=== PATIENT | male | born 1955 | race Caucasian/White ===

== ENCOUNTER → 2018-01-18 09:28 | Outpatient (CLI) | payer BC, SELFPAY ==
[2018-01-18 10:09] LABS: Absolute Lymphocyte Count 1.91 X10^3/ul (0.83-4.51); Absolute Neutrophil Count 2.5 X10^3/uL (2.0-7.7); Basophil# 0.05 X10^3/uL; Eosinophil# 0.15 X10^3/uL; Eosinophils% 2.9 % (0-5); Hematocrit 44.5 % (40-54); Hemoglobin 14.7 g/dl (13.0-16.5); Lymphocyte # 1.91 X10^3/ul (4.0); Lymphocyte % 36.9 % (19-41); Mean Corpuscular Hgb 30.2 pg (27.0-32.0); Mean Corpuscular Volume 91.4 fL (80-94); Mean Platelet Vol. 9.4 fl (6.2-12.0); Monocyte# 0.56 X10^3/uL; Monocyte% 10.8 % (0-10); Neutrophil # 2.49 X10^3/uL (2.7-7.7); Neutrophil % 48.2 % (47-70); POSITIVE COUNT NO; POSITIVE DIFFERENTIAL NO; POSITIVE MORPHOLOGY NO; Platelet Count 209 K/mm3 (150-450); RBC Distribution Width CV 13.4 % (11.6-14.6); RBC Distribution Width SD 44.4 fl (35.1-43.9); Red Blood Count 4.87 M/mm3 (4.6-6.2); White Blood Count 5.2 K/mm3 (4.4-11.0)
[2018-01-18 10:38] LABS: ALB/GLOB Ratio 1.1 RATIO (0.9-2.4); AST(SGOT) 12 U/L (15-37); Alanine Aminotransfer ALT/SGPT 27 U/L (16-61); Albumin, Serum 3.5 g/dL (3.2-5.0); Alkaline Phosphatase 94 U/L (45-117); Anion Gap 7 (5-15); BUN 18 mg/dL (7-18); BUN/Creat Ratio 18.9 RATIO (10-20); Calcium,Total 8.5 mg/dL (8.5-10.1); Chloride 107 mmol/L (98-107); Cholesterol 205 mg/dL (200); Creatinine, Serum 0.95 mg/dL (0.70-1.30); EST Glomerular Filtration Rate 85 mL/min (>60); Est Glom Filt Rate - Afr Amer 103 mL/min (>60); Globulin 3.3 g/dL (2.2-4.2); Glucose 95 mg/dL (74-106); High Density Lipoprotein 47 mg/dL; Potassium 3.9 mmol/L (3.5-5.1); Protein, Total 6.8 g/dL (6.4-8.2); Sodium Level 143 mmol/L (136-145); Triglycerides 105 mg/dL; Very Low Density Lipoprotein 21 mg/dL (5-40)
== END ==
PROVIDERS: Family Provider Family Medicine; PCP Family Medicine; Referring Provider Family Medicine; Visit Provider Family Medicine
DX: Z00.01 Encounter for general adult medical examination with abnormal findings (principal); R00.1 Bradycardia, unspecified; Z12.5 Encounter for screening for malignant neoplasm of prostate
CPT/HCPCS: 36415; 80053; 80061; 84153; 85025; G0103

== ENCOUNTER → 2018-06-25 17:36 | Outpatient (CLI) | payer BC, SELFPAY ==
--- NOTE | 2018-06-17 17:30 | RAD_ITS ---
STUDY: X-RAY - ORBITS REASON FOR EXAM: Male, 63 years old. This study is being performed as a clearance examination for exclusion of orbital metal, prior to the performance of an MRI examination. TECHNIQUE: 2 view(s) of the orbits were obtained. COMPARISON: None. FINDINGS: Normal bilateral orbits without a metallic orbital foreign body. Normal visualized facial bones. Normal paranasal sinuses. The soft tissue structures are unremarkable. RAD/Orbits for Foreign Body IMPRESSION: No demonstrated metallic orbital foreign body. The patient is cleared for an MRI examination. Electronically Signed: Carlos Blair MD at 7:49 EST , Service support ,
--- NOTE | 2018-06-25 18:15 | MRI_ITS ---
STUDY: MRI CERVICAL SPINE WITHOUT CONTRAST REASON FOR EXAM: Male, 63 years old. Left arm pain and tingling TECHNIQUE: Standardized fat and water weighted pulse sequences were obtained in the sagittal and axial planes. COMPARISON: None FINDINGS: Normal foramen magnum and brainstem-cervical cord junction. Normal craniovertebral junction. Normal anterior atlantoaxial articulation. Normal odontoid process. Normal cervical lordosis. Normal vertebral bodies and posterior osseous elements. C2-3: Normal endplates. Normal disc height, signal and morphology. Normal central canal and intervertebral neural foramina. C3-4: Normal endplates. Normal disc height, signal and tiny central disc protrusion. Normal central canal and intervertebral neural foramina. C4-5: Narrowed disc space and endplate spurring with minor bulging disc osteophyte complex. Normal central canal. Moderate right neuroforaminal stenosis and mild narrowing on the left secondary to bony hypertrophy. C6-7:: Normal endplates. Normal disc height, signal and minor bulging of the disc with left posterolateral/foraminal disc protrusion.. Mild narrowing of the central canal and impingement upon ventral surface of the thecal sac and cord. Severe left neuroforaminal stenosis secondary to disc and bony hypertrophy. Minor right neural foraminal encroachment secondary to bony hypertrophy C7-T1: Normal endplates. Normal disc height, signal and morphology. Normal central canal and intervertebral neural foramina. Normal cervical cord. Normal visualized soft tissue structures. MRI/Spine Cervical (Routine) IMPRESSION: No evidence for acute fracture or other significant bony pathology.. Mild spondylosis. Minor bulging disc osteophyte complex at C4-5 creating moderate right neuroforaminal stenosis and mild narrowing on the left due to bony hypertrophy. Spinal stenosis at C6-7 greater on the left secondary to disc disease and bony hypertrophy Findings as above Electronically Signed: Adriel Guerra MD at 20:13 EST , Service support ,
== END ==
PROVIDERS: Family Provider Family Medicine; PCP Family Medicine
DX: M54.13 Radiculopathy, cervicothoracic region (principal)
CPT/HCPCS: 70030; 72141

== ENCOUNTER → 2019-02-07 08:58 | Outpatient (CLI) | payer BC, SELFPAY ==
[2019-02-07 10:57] LABS: Absolute Lymphocyte Count 1.89 X10^3/uL (0.83-4.51); Absolute Neutrophil Count 2.3 X10^3/uL (2.0-7.7); Basophil# 0.07 X10^3/uL; Basophil% 1.4 % (0-1); Eosinophil# 0.11 X10^3/uL; Eosinophils% 2.2 % (0-5); Hematocrit 47.1 % (40-54); Hemoglobin 15.2 g/dL (13.0-16.5); Lymphocyte # 1.89 X10^3/ul (4.0); Mean Corp Hgb Conc 32.3 g/dL (32-36); Mean Corpuscular Hgb 29.7 pg (27.0-32.0); Mean Platelet Vol. 9.6 fl (6.2-12.0); Monocyte# 0.57 X10^3/uL; Monocyte% 11.4 % (0-10); NRBC Flagged by Analyzer 0 % (0-5); Neutrophil # 2.33 X10^3/uL (2.7-7.7); Neutrophil % 46.8 % (47-70); Platelet Count 223 K/mm3 (150-450); RBC Distribution Width SD 44.1 fl (35.1-43.9); Red Blood Count 5.12 M/mm3 (4.6-6.2)
[2019-02-07 11:26] LABS: AST(SGOT) 14 U/L (15-37); Alanine Aminotransfer ALT/SGPT 28 U/L (16-61); Albumin, Serum 3.5 g/dL (3.2-5.0); Alkaline Phosphatase 88 U/L (45-117); Anion Gap 3 (5-15); BUN 13 mg/dL (7-18); BUN/Creat Ratio 14.3 RATIO (10-20); Chloride 106 mmol/L (98-107); Cholesterol 183 mg/dL (200); Creatinine, Serum 0.91 mg/dL (0.70-1.30); EST Glomerular Filtration Rate 89 mL/min (>60); Est Glom Filt Rate - Afr Amer 108 mL/min (>60); Globulin 3.4 g/dL (2.2-4.2); Glucose 83 mg/dL (74-106); High Density Lipoprotein 53 mg/dL; PSA,Total - Annual Screen 1.21 ng/mL (0.00-4.00); Potassium 3.9 mmol/L (3.5-5.1); Protein, Total 6.9 g/dL (6.4-8.2); Sodium Level 141 mmol/L (136-145); Triglycerides 76 mg/dL; Very Low Density Lipoprotein 15 mg/dL (5-40)
== END ==
PROVIDERS: Family Provider Family Medicine; PCP Family Medicine; Referring Provider Family Medicine; Visit Provider Family Medicine
DX: Z00.00 Encounter for general adult medical examination without abnormal findings (principal); Z12.5 Encounter for screening for malignant neoplasm of prostate
CPT/HCPCS: 36415; 80053; 80061; 84153; 85025; G0103

== ENCOUNTER → 2020-02-11 08:51 | Outpatient (CLI) ==
[2020-02-11 10:25] LABS: Absolute Lymphocyte Count 2.71 X10^3/uL (0.83-4.51); Absolute Neutrophil Count 3.2 X10^3/uL (2.0-7.7); Basophil# 0.08 X10^3/uL; Basophil% 1.2 % (0-1); Eosinophil# 0.17 X10^3/uL; Eosinophils% 2.4 % (0-5); Hematocrit 47.5 % (40-54); Hemoglobin 15.2 g/dL (13.0-16.5); Lymphocyte # 2.71 X10^3/ul (4.0); Mean Corpuscular Hgb 29.6 pg (27.0-32.0); Mean Corpuscular Volume 92.4 fL (80-94); Monocyte# 0.73 X10^3/uL; Monocyte% 10.5 % (0-10); NRBC Flagged by Analyzer 0 % (0-5); Neutrophil # 3.23 X10^3/uL (2.7-7.7); Neutrophil % 46.6 % (47-70); Platelet Count 223 K/mm3 (150-450); RBC Distribution Width CV 12.9 % (11.6-14.6); Red Blood Count 5.14 M/mm3 (4.6-6.2); White Blood Count 6.9 K/mm3 (4.4-11.0)
[2020-02-11 11:01] LABS: AST(SGOT) 18 U/L (15-37); Alanine Aminotransfer ALT/SGPT 34 U/L (16-61); Albumin, Serum 3.5 g/dL (3.2-5.0); Alkaline Phosphatase 94 U/L (45-117); Anion Gap 2 (5-15); BUN 18 mg/dL (7-18); BUN/Creat Ratio 17.8 RATIO (10-20); Calcium,Total 8.7 mg/dL (8.5-10.1); Chloride 105 mmol/L (98-107); Cholesterol 201 mg/dL (200); Creatinine, Serum 1.01 mg/dL (0.70-1.30); EST Glomerular Filtration Rate 79 mL/min (>60); Est Glom Filt Rate - Afr Amer 96 mL/min (>60); Globulin 3.6 g/dL (2.2-4.2); Glucose 78 mg/dL (74-106); High Density Lipoprotein 47 mg/dL; PSA,Total - Annual Screen 1.63 ng/mL (0.00-4.00); Potassium 4.2 mmol/L (3.5-5.1); Protein, Total 7.1 g/dL (6.4-8.2); Sodium Level 140 mmol/L (136-145); Triglycerides 236 mg/dL; Very Low Density Lipoprotein 47 mg/dL (5-40)
== END ==
PROVIDERS: Family Medicine
DX: Z00.00 Encounter for general adult medical examination without abnormal findings (principal); Z12.5 Encounter for screening for malignant neoplasm of prostate
CPT/HCPCS: 36415; 80053; 80061; 84153; 85025; G0103

== ENCOUNTER → 2021-02-04 09:05 | Outpatient (CLI) | payer BC, SELFPAY ==
[2021-02-04 10:53] LABS: Absolute Lymphocyte Count 1.86 X10^3/uL (0.83-4.51); Absolute Neutrophil Count 2.6 X10^3/uL (2.0-7.7); Basophil# 0.07 X10^3/uL; Basophil% 1.3 % (0-1); Eosinophil# 0.16 X10^3/uL; Eosinophils% 3.1 % (0-5); Hematocrit 44.9 % (40-54); Hemoglobin 14.6 g/dL (13.0-16.5); Lymphocyte # 1.86 X10^3/ul (0.83-4.51); Lymphocyte % 35.8 % (19-41); Mean Corp Hgb Conc 32.5 g/dL (32-36); Mean Corpuscular Hgb 29.9 pg (27.0-32.0); Mean Platelet Vol. 9.4 fl (6.2-12.0); Monocyte# 0.52 X10^3/uL; NRBC Flagged by Analyzer 0 % (0-5); Neutrophil # 2.58 X10^3/uL (2.7-7.7); Neutrophil % 49.6 % (47-70); Platelet Count 220 K/mm3 (150-450); RBC Distribution Width CV 13.3 % (11.6-14.6); RBC Distribution Width SD 45.5 fl (35.1-43.9); Red Blood Count 4.88 M/mm3 (4.6-6.2); White Blood Count 5.2 K/mm3 (4.4-11.0)
[2021-02-04 11:44] LABS: AST(SGOT) 15 U/L (15-37); Alanine Aminotransfer ALT/SGPT 35 U/L (16-61); Albumin, Serum 3.4 g/dL (3.2-5.0); Alkaline Phosphatase 94 U/L (45-117); Anion Gap 4 (5-15); BUN 19 mg/dL (7-18); BUN/Creat Ratio 20.9 RATIO (10-20); Calcium,Total 8.9 mg/dL (8.5-10.1); Chloride 105 mmol/L (98-107); Cholesterol 201 mg/dL (200); Creatinine, Serum 0.91 mg/dL (0.70-1.30); EST Glomerular Filtration Rate 89 mL/min (>60); Est Glom Filt Rate - Afr Amer 108 mL/min (>60); Globulin 3.5 g/dL (2.2-4.2); Glucose 82 mg/dL (74-106); High Density Lipoprotein 51 mg/dL; PSA,Total - Annual Screen 1.54 ng/mL (0.00-4.00); Potassium 3.9 mmol/L (3.5-5.1); Protein, Total 6.9 g/dL (6.4-8.2); Sodium Level 141 mmol/L (136-145); Triglycerides 139 mg/dL; Very Low Density Lipoprotein 28 mg/dL (5-40)
[2021-02-06 10:52] LABS: Vitamin D,25 Hydroxy 29.2 ng/mL
== END ==
PROVIDERS: PCP Family Medicine; Visit Provider Family Medicine
DX: Z00.00 Encounter for general adult medical examination without abnormal findings (principal); Z12.5 Encounter for screening for malignant neoplasm of prostate; E55.9 Vitamin D deficiency, unspecified
CPT/HCPCS: 36415; 80053; 80061; 82306; 84153; 85025; G0103

== ENCOUNTER → 2021-04-17 12:34 | Outpatient (CLI) | payer BC, SELFPAY | PROVIDERS: PCP Family Medicine; Visit Provider Family Medicine | DX: U07.1 COVID-19 (principal) | CPT/HCPCS: 87633; 87635; U0005; U0003 ==

== ENCOUNTER → 2022-02-27 | Outpatient (CLI) | payer OTHER, SELFPAY ==
[2022-02-27 10:26] LABS: Absolute Lymphocyte Count 1.65 X10^3/uL (0.83-4.51); Absolute Neutrophil Count 1.8 X10^3/uL (2.0-7.7); Basophil# 0.06 X10^3/uL; Basophil% 1.5 % (0-1); Eosinophil# 0.12 X10^3/uL; Eosinophils% 2.9 % (0-5); Hematocrit 44.5 % (40-54); Hemoglobin 14.6 g/dL (13.0-16.5); Lymphocyte # 1.65 X10^3/ul (0.83-4.51); Lymphocyte % 40.5 % (19-41); Mean Corp Hgb Conc 32.8 g/dL (32-36); Mean Corpuscular Hgb 29.9 pg (27.0-32.0); Mean Platelet Vol. 9.5 fl (6.2-12.0); Monocyte# 0.47 X10^3/uL; Monocyte% 11.5 % (0-10); NRBC Flagged by Analyzer 0 % (0-5); Neutrophil # 1.76 X10^3/uL (2.7-7.7); Neutrophil % 43.4 % (47-70); Platelet Count 194 K/mm3 (150-450); RBC Distribution Width CV 13.3 % (11.6-14.6); RBC Distribution Width SD 44.9 fl (35.1-43.9); Red Blood Count 4.89 M/mm3 (4.6-6.2); White Blood Count 4.1 K/mm3 (4.4-11.0)
[2022-02-27 11:21] LABS: ALB/GLOB Ratio 1.1 RATIO (0.9-2.4); AST(SGOT) 10 U/L (15-37); Alanine Aminotransfer ALT/SGPT 23 U/L (16-61); Albumin, Serum 3.6 g/dL (3.2-5.0); Alkaline Phosphatase 91 U/L (45-117); Anion Gap 5 (5-15); BUN 18 mg/dL (7-18); BUN/Creat Ratio 18.8 RATIO (10-20); Calcium,Total 8.6 mg/dL (8.5-10.1); Chloride 104 mmol/L (98-107); Cholesterol 194 mg/dL (200); Creatinine, Serum 0.96 mg/dL (0.70-1.30); EST Glomerular Filtration Rate 84 mL/min (>60); Est Glom Filt Rate - Afr Amer 101 mL/min (>60); Globulin 3.2 g/dL (2.2-4.2); Glucose 93 mg/dL (74-106); High Density Lipoprotein 53 mg/dL; PSA,Total - Annual Screen 1.45 ng/mL (0.00-4.00); Potassium 3.5 mmol/L (3.5-5.1); Protein, Total 6.8 g/dL (6.4-8.2); Sodium Level 138 mmol/L (136-145); Triglycerides 103 mg/dL; Very Low Density Lipoprotein 21 mg/dL (5-40)
== END | disposition home or self-care (01) ==
LOC: LAB 09:50
PROVIDERS: PCP Family Medicine; Referring Provider Family Medicine; Visit Provider Family Medicine
DX: Z00.00 Encounter for general adult medical examination without abnormal findings (principal); Z12.5 Encounter for screening for malignant neoplasm of prostate
CPT/HCPCS: 36415; 80053; 80061; 84153; 85025; G0103

== ENCOUNTER → 2022-09-21 | Outpatient (CLI) | payer OTHER, SELFPAY ==
--- NOTE | 2022-09-21 10:47 | VDLE_ITS ---
Reason For Study: Rt leg Thrombophlebitis RIGHT LEFT CFV is compressible, spontaneous, phasic, CFV is compressible, spontaneous, phasic, competent and demonstrates normal competent, and demonstrates normal augmentation. augmentation. FV is compressible, spontaneous, phasic, competent and demonstrates normal augmentation. POP V is compressible, spontaneous, phasic, competent and demonstrates normal augmentation. T/P Trunk is compressible. PTV is compressible. RT PerV is compressible. Rt GSV is DILATED and NONCOMPRESSIBLE with intraluminal echoes. Thrombus appears to originate 7-8cm distal to SFJ. Rt ASV is DILATED and NONCOMPRESSIBLE with intraluminal echoes. Thrombus appears to extend from GSV into ASV at prox-mid thigh and extend into multple varicosities at mid calf. Rt SSV is DILATED and NONCOMPRESSIBLE with intraluminal echoes.Thrombus appears to originate 2-3cm distal to origin. Procedure This is a venous duplex using B-mode, color flow and spectral Doppler. Exam performed in department. The exam was diagnostic. A preliminary report was called and/or faxed to Dr. Shah office. VL/Venous Duplex US, Unilateral Interpretation Summary There is no evidence of right lower extremity deep vein thrombosis. Superficial thrombophlebitis right great saphenous vein 7 cm distal to the saphenofemoral junction Superficial thrombophlebitis right accessory saphenous vein into the proximal/m id thigh Superficial thrombophlebitis right small saphenous vein to within 2 cm of the o rigin Normal flow patterns left common femoral vein Ordering Physician: Abdullahi Shah Referring Physician: Abdullahi Shah Performed By: Richard Gurrola RVT
== END | disposition home or self-care (01) ==
LOC: CVS 10:45
PROVIDERS: PCP Family Medicine; Referring Provider Family Medicine; Visit Provider Family Medicine
DX: I80.01 Phlebitis and thrombophlebitis of superficial vessels of right lower extremity (principal)
CPT/HCPCS: 93971

== ENCOUNTER → 2023-01-22 | Outpatient (CLI) | payer OTHER, SELFPAY ==
[2023-01-22 10:44] LABS: Cholesterol 204 mg/dL (200); High Density Lipoprotein 47 mg/dL; PSA,Total - Annual Screen 1.96 ng/mL (0.00-4.00); Triglycerides 120 mg/dL; Very Low Density Lipoprotein 24 mg/dL (5-40)
== END | disposition home or self-care (01) ==
PROVIDERS: PCP Family Medicine; Referring Provider Family Medicine; Visit Provider Family Medicine
DX: Z00.00 Encounter for general adult medical examination without abnormal findings (principal); Z12.5 Encounter for screening for malignant neoplasm of prostate
CPT/HCPCS: 36415; 80061; 84153; G0103

== ENCOUNTER → 2023-04-11 | Outpatient (CLI) | payer SELFPAY ==
--- NOTE | 2023-04-11 16:49 | CT_ITS ---
EXAM: CT LEFT UPPER EXTREMITY WITHOUT INTRAVENOUS CONTRAST CLINICAL INDICATION: OSTEOARTHRITIS/PRE OP TECHNIQUE: Helically acquired images were obtained of the left upper extremity without intravenous contrast. 2-D reformats were performed by the technologist. CTDIvol = ( 22.17 ) mGy, DLP = ( 554.01 ) mGycm This CT exam was performed using one or more of the following dose reduction techniques: automated exposure control, adjustment of the mA and/or kV according to patient size, and/or use of iterative reconstruction technique. COMPARISON: No relevant prior studies available. FINDINGS: BONES/JOINTS: Small corticated irregular ossific fragment identified adjacent to the anterior aspect of the acromion. Moderate to severe hypertrophic degenerative changes of the acromioclavicular joint with moderate mass effect on the underlying soft tissues. High riding humeral head indicative of a chronic full thickness rotator cuff tear. Small humeral head bone island and inferior glenoid bone island. No acute or healing fracture or other malalignment. SOFT TISSUES: Unremarkable. No soft tissue swelling or gas. No radiopaque foreign body. No soft tissue hemorrhage or hematoma. LUNGS AND PLEURAL SPACES: Incompletely imaged 6 mm subpleural nodule at the posterior lateral aspect of the left lower lobe. CT/Extremity Upper without Contra IMPRESSION: Preoperative planning study showing moderate to severe degenerative changes acromioclavicular joint. Evidence of a chronic full thickness rotator cuff tear with high riding humeral head. Incompletely imaged 6 mm subpleural nodule at the posterior lateral aspect of the left lower lobe. Suggest a follow up chest CT to better evaluate and is assessed with the presence of any other nodules throughout the lungs bilaterally. Electronically Signed: Garret Benítez MD at 21:40 EST ,
== END | disposition home or self-care (01) ==
LOC: CT 16:43
PROVIDERS: PCP Family Medicine; Referring Provider Specialist; Visit Provider Specialist
DX: M19.012 Primary osteoarthritis, left shoulder (principal)
CPT/HCPCS: 73200

== ENCOUNTER → 2023-04-23 | Outpatient (CLI) | payer MEDICARE, OTHER, SELFPAY ==
--- OUTSIDE RECORDS SUMMARY | 2023-04-23 14:09 | XMS RPT_ITS | CCD ---
Author Name Unknown Address [address] [place] [address] Organization [facility] Care Team Providers Care Backer Up Name Role Phone KYLIEDAYSISANTIAGO RuedaYONG GREGORY Attending Unavail able PROVIDER, UNKNOWN Referring Unavailable Abdullahi Shah Primary Care Unavailable Encounters Encounter Date Encounter Type Care Provider Facility Start: 07-17-2018 Patient encounter procedure LORI CACERES [facility] Payers Date Payer Category Payer Unknown [id number] Unknown Summary Purpose Family History No Family History Records Found Advance Directives No Advanced Directives Records Found Additional Source Comments (unrecognized sect ion and content) No Status Records Found INFORMATION SOURCE (unrecogn ized section and content) FOR RECORDS PERTAINING TO PATIENTS WHO ARE OR HAVE BEEN ENROLLED IN A CHEMICAL DEPENDENCY/SUBSTANCEABUSE PROGRAM, SOME INFORMATION MAY BE OMITTED. This clinical summary was aggregated from multiple sources. Caution should be exercised in using it in the provision of clinical care. This summary normalizes information from multiple sources, and as a consequence, information in this document may materially change the coding, format and clinical context of patient data. In addition, data may be omitted in some cases. CLINICAL DECISIONS SHOULD BE BASED ON THE PRIMARY CLINICAL RECORDS. [facility] [employer] [facility]. provides no warranty or guarantee of the accuracy or completeness of information in this document.
--- NOTE | 2023-04-23 14:15 | CT_ITS ---
INDICATION: NODULE EXAMINATION: CT CHEST WITH CONTRAST - CT Chest W/ Contrast Injection TECHNIQUE: Helically acquired images were obtained of the chest following IV contrast. A radiation dose optimization technique was used for this scan. IV Contrast dosage and agent: 100 cc of Isovue-300. CTDI vol : 17.74. The DLP: 478.77 COMPARISON: None. FINDINGS: LUNGS, PLEURA AND LARGE AIRWAYS: There is a small nodule identified within the left lower lobe near the subpleural region measuring 5.6 mm. There is mild posterior dependent atelectasis throughout the bilateral lower lobes. Otherwise normal lung parenchyma with no masses, consolidation, or edema. No pleural effusion or thickening. No pneumothorax. THYROID: No thyroid lesions. HEART AND PERICARDIUM: Heart size is normal. No pericardial effusion. VESSELS: Mild atherosclerosis of aorta otherwise aorta is not dilated. No aortic dissection. No obvious central pulmonary embolism although this study was not performed with the pulmonary embolism protocol. MEDIASTINUM AND BILL: No mediastinal or hilar adenopathy. Esophagus is unremarkable. No hiatal hernia. UPPER ABDOMEN: Left upper no pole simple cyst measuring 3.8 cm. Remainder of the visualized upper abdomen unremarkable. BONES: No suspicious lytic or blastic abnormality. CT/Chest WITH Contrast IMPRESSION: Posterior dependent atelectasis. 5.6 nodule within the left lower lobe near the subpleural region which may be further assessed with CT chest in 6-12 months, depending on risk factors to document stability. Electronically Signed: Corrie Dove MD at 23:11 EST ,
[2023-04-23 14:31] LABS: CREATININE FINGERSTICK < 1.0 mg/dL (0.70-1.30); EGFR FINGERSTICK > 60.0000 mL/min (>60)
== END | disposition home or self-care (01) ==
LOC: CT 13:36
PROVIDERS: PCP Family Medicine; Referring Provider Family Medicine; Visit Provider Family Medicine
DX: R91.1 Solitary pulmonary nodule (principal)
CPT/HCPCS: 71260; Q9967

== ENCOUNTER 2023-05-08 05:21 | Day surgery (SDC) | payer MEDICARE, OTHER, SELFPAY ==
--- NOTE | 2023-04-23 13:33 | EKG12_ITS ---
Test Reason : PREOP Blood Pressure : / mmHG Vent. Rate : 042 BPM Atrial Rate : 042 BPM P-R Int : 136 ms QRS Dur : 072 ms QT Int : 442 ms P-R-T Axes : 099 072 072 degrees QTc Int : 369 ms Marked sinus bradycardia Nonspecific ST abnormality Abnormal ECG Confirmed by DOLORES MENDEZ, HALLIE ([id number]), newspaper editor SIMA ZULETA ([id number]) on 04/24/2023 6:20:18 AM Referred By: Elijah Fuller Confirmed By:HALLIE BERNAL MD
[2023-04-23 15:19] LABS: Absolute Lymphocyte Count 1.24 X10^3/uL (0.83-4.51); Absolute Neutrophil Count 3.5 X10^3/uL (2.0-7.7); Basophil# 0.11 X10^3/uL; Basophil% 1.9 % (0-1); Eosinophil# 0.17 X10^3/uL; Hematocrit 45.6 % (40-54); Hemoglobin 14.5 g/dL (13.0-16.5); Lymphocyte # 1.24 X10^3/ul (0.83-4.51); Lymphocyte % 21.5 % (19-41); Mean Corp Hgb Conc 31.8 g/dL (32-36); Mean Corpuscular Hgb 29.2 pg (27.0-32.0); Mean Corpuscular Volume 91.8 fL (80-94); Monocyte# 0.69 X10^3/uL; NRBC Flagged by Analyzer 0 % (0-5); Neutrophil # 3.53 X10^3/uL (2.7-7.7); Neutrophil % 61.3 % (47-70); Platelet Count 236 K/mm3 (150-450); RBC Distribution Width CV 13.2 % (11.6-14.6); RBC Distribution Width SD 44.7 fl (35.1-43.9); Red Blood Count 4.97 M/mm3 (4.6-6.2); White Blood Count 5.8 K/mm3 (4.4-11.0)
[2023-04-23 15:41] LABS: Magnesium 2.3 mg/dL (1.6-2.6)
[2023-04-23 15:45] LABS: Albumin, Serum 3.5 g/dL (3.2-5.0); Anion Gap 3 (5-15); BUN 22 mg/dL (7-18); BUN/Creat Ratio 21.2 RATIO (10-20); Calcium,Total 8.8 mg/dL (8.5-10.1); Chloride 104 mmol/L (98-107); Creatinine, Serum 1.04 mg/dL (0.70-1.30); EST Glomerular Filtration Rate 76 mL/min (>60); Est Glom Filt Rate - Afr Amer 92 mL/min (>60); Glucose 102 mg/dL (74-106); Potassium 4.4 mmol/L (3.5-5.1); Sodium Level 139 mmol/L (136-145)
--- NOTE | 2023-05-02 14:07 | PCM.HP.BLA ---
History and Physical History and Physical? Patient Name: Kit Joyce : 1955 From:? KASEY DUNCAN PA-C? DATE OF PRE-OPERATIVE EXAM: 05/01/2023 DATE OF SURGERY:? 05/08/2023 SCHEDULED PROCEDURE:? Left reverse total shoulder arthroplasty HISTORY OF PRESENT ILLNESS: Preoperative history and physical exam was performed on May 01, 2023.? This is a 67-year-old male who is had ongoing pain with his left shoulder for over 3 years.? Patient has had 2 previous MRIs of the left shoulder which did reveal large rotator cuff tears.? Patient was initially seen by Dr. Abdifatah Morrow in which the rotator cuff tear was deemed irreparable.? His pain can still reach 7/10 with activities and on average 4/10.? He has difficulty with getting dressed putting on clothing due to the pain.? Pain is located over the anterior lateral left shoulder.? He also has difficulty with any activities that require reaching out, overhead or any pushing/pulling activities.? Patient has had previous corticosteroid injections with no relief.? Patient has also been through previous physical therapy without relief.? Patient has also obtain surgical clearance and the primary care provider Dr. Abdullahi Shah.? Patient has no medical complications however does state he has had a previous superficial venous thrombosis in the past.? Denies any past DVT or pulmonary embolism.? After failing conservative measures and discussing all treatment options with Dr. Elijah Fuller, the patient does wish to proceed with a left reverse total shoulder arthroplasty.? He denies any recent chest pain, shortness of breath, fevers chills or recent infections.? Patient has been using two protein drinks due to nutritional testing. REVIEW OF SYSTEMS: Review Of Systems: Constitutional: Denies change in appetite, fever and weight change. Cardiovasular: Denies chest pain, heart murmur and irregular heartbeat. Respiratory: Denies cough, pneumonia, shortness of breath, tuberculosis and wheezing. Gastrointestinal: Denies constipation, diarrhea, heartburn, nausea, rectal itching, bloody stools and vomiting. Genitourinary: Denies incontinence. Musculoskeletal: Reports pain and weakness, but denies leg swelling and trouble walking. Skin: Denies Raynaud's, history of shingles and tattoo. Neurological: Denies ambulatory dysfunction, dizziness, numbness/tingling and tremor. Psychiatric: Denies anxiety, insomnia and stress. Hematologic/Lymphatic: Denies anemia, bleeding/bruising tendency and past transfusion. Reviewed, no changes. PAST MEDICAL HISTORY: Advance Care Plan: No Advance Directives Effective Date: 10/06/2019 Past Medical History: Medical Problems: Hard of Hearing SVT - (08/2022) Right lower extremity? Accidents: None Surgical Hx: Appendectomy - (1983) [facility] Anesthesia Complications: None Assistive Devices: Glasses, Contacts Reviewed and updated. SOCIAL HISTORY: Social History: Marital: .Occupation: [employer]Work Status: Currently Working.Hand Dominance: Left-handed. Personal Habits:? Cigarette Use: Never Smoked Cigarettes.Smokeless Tobacco: Never Used Smokeless Tobacco.E-Cigarette Use: Never used.Alcohol: Denies use.Drug Use: Denies Use.Enjoy Exercising: Never Exercises. Reviewed, no changes. VITALS: Ht: 71.5 Wt: 189lb Wt k.730 BMI: 26.0 BP: 122/80 Pulse: 54 T: 97.3 T: 36.3C Pain Level: 4 O2SatR: 98 ALLERGIES: No Known Drug Allergy? MEDICATIONS: Oxycodone HCL 5 mg 1-2 tab by mouth every 4 hours as needed for pain, Meloxicam 7.5 mg 1 by mouth twice a day postoperatively, Doxycycline Hyclate 100 mg 1 by mouth twice a day x 2 weeks postoperatively, Zofran 4 mg one by mouth every 8 as needed nausea, Famotidine 20 mg 1 by mouth every day x 2 weeks postoperatively, Mupirocin 2 % use qtip and apply inside each nostril twice a day until the day of surgery, Calcium 600-10 MG-mcg 2po dialy, Vitamin D3? 2000 iu 50mcg 1 tablet per day, Claritin 10 mg as needed PRE-OP EXAM:? General appearance:NORMAL? ? ? Other: Eyes: Conjunctivae and lids: NORMAL? Pupils: ERR Ears, Nose, Mouth, and Throat: NORMAL? Other: Inspection of lips, teeth and gums: NORMAL? ?Other: Neck: Examination of neck: no masses noted. Respiratory: Assessment of respiratory effort: NORMAL? ?Other: ?Auscultation of lungs: clear to auscultation no wheezes, rhonchi or rales. Cardiovascular:? Auscultation of heart: regular rate and rhythm, no murmurs, gallops or rubs. PHYSICAL EXAMINATION: On exam the left shoulder there is no erythema or signs of infection.? He has active forward elevation to 90, external rotation proximally 40, internal rotation L2.? Passive range of motion forward flexion 145.? Supraspinatus strength 4/5 on the left and 5/5 on the right.? Sensation intact to light touch to axillary, radial, median, ulnar nerve distribution. IMAGING STUDIES: Previous x-rays and MRIs reveal severe retracted rotator cuff tendon tear with rotator cuff arthropathy. IMPRESSION: 1.? Severe left shoulder rotator cuff arthropathy 2.? History of superficial venous thrombosis 3.? Overweight with BMI 26.0 PLAN: Dr. Elijah Fuller did discuss and review with the patient all treatment options including surgical versus nonsurgical options.? Patient does wish to proceed with the above-stated procedure.? Potential risks, benefits, and complications of the procedure were discussed in detail including but not limited to , infection, nerve and blood vessel damage, persistent pain, numbness, tingling, paresthesias, blood clot, pulmonary embolism, and requirement for possible further surgery.? The patient expressed full understanding and has no further questions for the doctor.? Patient does agree to proceed with the above-stated procedure and has signed the surgery consent form. POST-OP MEDICATION PLAN: Pain Medications: Patient was given the following medications at the preoperative visit: Famotidine, meloxicam, oxycodone, and Zofran.? 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 We discussed side effects with hypersensitivity to sunlight in which she should take appropriate precautions.? Also recommended probiotic while on the antibiotic for 2 weeks.? He was also instructed to quill picking machine operator [id number] enteric-coated aspirin, extra strength Tylenol, and senna. DVT Prophylaxis:? Aspirin 81 mg twice daily for 4 weeks postoperatively.? Denies past history of DVT or pulmonary embolism This dictation was created using voice recognition software. Phonetic and/or grammatical errors may exist. ___? I have re-examined the patient.? There are no clinical changes since date of exam. ___? See progress notes for changes. ___? Dictated on admission Date: ? ? ?Time: Signature:
--- NOTE | 2023-05-07 07:30 | HIP_PTH ---
PATHOLOGY RESULTS PATIENT: JAY DA SILVA I LOC: [facility] [place] U#:[id number] AGE/SX: 67/M ROOM: RE05/08/[address]: Dr. Elijah Fuller MD : 1955 BED: DIS: 05/08/2023 SPEC #: [id number] RECD: 05/08/23 11:37 STATUS: TYREE RELora #: [id number] SOBIA: 05/07/23 07:[address]: Elijah Fuller DEPT: SURGICAL PATHOLOGY RECD BY: Kayla Urban ENTERED: 05/08/23 11:38 SP TYPE: TOTAL HIP OTHR DR: Dr. Abdullahi Shah, DO Tissues: Hip, NOS Procedures: Decalcification bone/plaque Surgery Specimen Level IV HEADER OPERATION: ERAS, total shoulder replacement PRE-OP DIAGNOSIS: Severe left shoulder rotator cuff arthroplasty TISSUE SUBMITTED: Bone and soft tissue left shoulder MICROSCOPIC DIAGNOSIS Bone and tissue of left shoulder, total shoulder resection: Degenerative joint disease. AM:candi 05/10/2023 MICROSCOPIC DESCRIPTION Slides are reviewed. GROSS DESCRIPTION Received is one container labeled with the patient's name and designated bone and soft tissue left shoulder. The specimen consists of a humeral head measuring 5.5 x 5.5 x 2.0 cm. The articular surface shows focal area of erosion and osteophyte formation. Also present in the container is a flat round piece of bone measuring 5.0 x 4.5 x 0.2 cm. Also present in the container are two pieces of soft tissue consisting predominantly of fibrocartilaginous tissue measuring in aggregate 5.0 x 3.5 x 0.6 cm. Dock Clerk sections are submitted in three cassettes as follows: 1 - soft tissue, 2 & 3 - humeral head after decalcification. / SJ:candi 05/08/2023 :5 CPT: 30067, 50908
[2023-05-08] VITALS (14 sets, daily range): BP systolic 122–184; BP diastolic 58–111; PULSE 41–70; RESP 12–18; TEMP 36.2–36.6; O2SAT 96–100; BMI 25.0
--- OUTSIDE RECORDS SUMMARY | 2023-05-08 05:23 | XMS RPT_ITS | CCD ---
Author Name Unknown Address [address] [place] [address] Organization [facility] Care Team Providers Care Tool Dispatcher Name Role Phone KYLIEDAYSISANTIAGO RuedaYONG GREGORY Attending Unavail able PROVIDER, UNKNOWN Referring Unavailable Abdullahi Shah Primary Care Unavailable Encounters Encounter Date Encounter Type Care Provider Facility Start: 07-17-2018 Patient encounter procedure LORI CACERES [facility] Payers Date Payer Category Payer Unknown [id number] Unknown Summary Purpose Family History No Family [...] BE BASED ON THE PRIMARY CLINICAL RECORDS. [facility]. provides no warranty or guarantee of the accuracy or completeness of information in this document.
[2023-05-08] MEDS: Lactated Ringers 1,000 ML 999 ML IV ×2 (06:00→10:13)
[2023-05-08] MEDS: Magnesium 1 GM over 15 mins IV (06:20)
[2023-05-08] MEDS: Vancomycin HCl 1,250 MG in 0.9% Normal Saline (250mL Bag) 250 ML 167 MG IV (06:22)
[2023-05-08] MEDS: Acetaminophen 500 MG Tablet 1000 MG PO ×2 (06:23→14:12)
[2023-05-08] MEDS: Celecoxib 200 MG Capsule 400 MG PO (06:23)
[2023-05-08] MEDS: Gabapentin 600 MG Tablet PO (06:24)
[2023-05-08 06:51] LABS: Bedside Glucose 87 mg/dL (74-106)
--- NOTE | 2023-05-08 07:27 | PCM.OPRPT ---
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 Tournier 25 mm 15 degree augment glenoid baseplate 2. Tournier 39 mm, 0mm Glenosphere 3. Tournier 39mm, 0mm humeral liner 4. Tournier Perform humeral stem primary press-fit 3+ size Brief history/Operative indications: 67 yo M with history of left shoulder pain and cuff tear arthropathy. Patient failed conservative measures as mentioned in the H&P. After discussion of risk and benefits of reverse total shoulder replacement including but not limited to blood loss, DVTs, PEs, nerve vessel damage, infection, general risk of anesthesia including loss of life, instability and stiffness patient demonstrating understanding wish to proceed was able to sign informed consent. Medical clearance was obtained. Procedure: On the date of the procedure, patient's left upper extremity was marked in the preoperative area. Patient was taken back to the operating room where they were placed on the table in the supine position. Anesthesia assumed control of the C-spine and airway, then administered anesthetic. All bony prominences were identified well-padded, the head was secured and the patient was placed in the beachchair position at about 35? inclination. Anesthesia remained in control of the C-spine airway throughout the remainder of the procedure. Patient was then appropriately fastened to the table and the left upper extremity was prepped in a sterile fashion. The surgeons then scrubbed. Upon reentering the room, the left upper extremity was draped in a sterile fashion and the incision was marked out. Timeout was called, everyone agreed upon the side, the site, the procedure to be performed, patient identity and antibiotics given. Incision was taken down through skin and subcutaneous tissue, fat down to fascia. The stripe of the deltopectoral interval and cephalic vein were identified and blunt dissection was used to retract the deltoid. The cephalic vein was retracted laterally. Clavipectoral fascia was then incised and a cobra retractor was placed in the wound. The proximal one third of the pectoralis major insertion was released. Pectoralis tendon insertion was used to tenodesed the biceps tendon which was identified in the bicipital groove. Tenodesis was done with #1 Vicryl. Proximally we followed the biceps tendon after transecting it into the rotator interval. The rotator interval was split and the arm was externally rotated. The split was 1 cm medial to the bicipital groove. Subscapularis tendon was released. We released down the anterior portion of the humeral head and a richardson elevator was used to release the inferior portion of the humeral head. The arm was externally rotated and the shoulder was dislocated. The humeral head was then cut at its natural retroversion. Once his humeral head cut was made humerus was retracted out of the way and the glenoid was exposed. After exposing the glenoid, the labrum and the remaining proximal biceps were debrided. At this time we are able to view the entire outer edge of the glenoid. A central pin was placed we sequentially reamed over this central pin to 25mm. Once this was completed the central screw was measured and found to be. The glenoid baseplate was screwed into place. Wound was closely irrigated out with normal saline we then drilled sequentially for 2 screws. Screws were placed superiorly and inferiorly and tightened down the screws. Once the screws were appropriately tightened into place the glenoid baseplate was compressed against the exposed subchondral bone. A 39mm glenosphere was impacted into place engaging the Zeng taper. Attention was then turned towards the humerus. The humerus was again externally rotated exposing the proximal portion of the humerus. Central canal finder was then used to open up the canal. We reamed to a 3 reamer. We then broached to a 3+ stem. We trialed the 0mm liner. We obtained an adequate reduction at this time with a nice stable shoulder. Good internal rotation to the gluteus, forward elevation to 140?, external rotation to 20?. Final components were then assembled on the back table, trials were removed and the wound was copiously irrigated with normal saline after dislocating the shoulder. Once the final components were assembled they were impacted into place. Shoulder was then reduced and found to be stable with good range of motion. Subscapularis tendon was repaired with #2 fiberwire. The wound was with chlorhexidine solution then copiously irrigated out with a 1 L normal saline lavage. The deltopectoral fascia was then closed using #1 Vicryl skin was closed using 2-0 Vicryl interrupted sutures and final skin closure was done with 3-0 Monocryl. Steri-Strips are placed for final skin closure. Sterile dressing was placed patient was then placed in a sling and awakened by anesthesia. Patient was then transferred to the PACU for recovery. Postoperative plan: Patient will be admitted to the hospital overnight. They will get physical therapy starting in 2 weeks with normal postoperative regimen. Patient will be placed on aspirin for DVT prophylaxis. The first postoperative appointment will be in 2 weeks for wound check and initiation of phase 1 physical therapy. doxycycline d/t +MRSA screening During the course of the procedure the physician budget assistant played a vital role. His intimate knowledge of my steps in the procedure aided in safe and expedient completion of the procedure. The PA played a vital rolls in positioning particularly in obtaining the appropriate beach chair position and securing the patient's body and head to the table. The PA was also vital in the retraction of soft tissues during the exposure and especially the glenoid work as this is a vital part of the procedure to prevent neurovascular damage. the PA was also vital and protecting soft tissues during times of bony cuts and reaming. He also played a vital role in closure with my direct supervision. The PA was also important during reduction and dislocation of the joint and trials intraoperatively. Complications none Admit VTE Documentation VTE Present on Admission: No VTE Mechan Device Prophylaxis: SCD's VTE Pharm Prophylaxis ordered?: Yes
[2023-05-08] MEDS: TXA 1000mg in NS100 100ml (IVPB at Incision) 660 MG IV (07:32)
[2023-05-08] MEDS: Cefazolin 2 GM in 0.9% Normal Saline (100mL Bag) 100 ML IV (07:42)
[2023-05-08] MEDS: Lactated Ringers 1,000 ML 75 ML IV (08:00)
[2023-05-08] MEDS: TXA 1000mg in NS100 100ml (IVPB at Closure) 660 MG IV (08:42)
[2023-05-08] MEDS: dexAMETHasone 10 MG/ML Vial IV (08:44)
--- NOTE | 2023-05-08 09:55 | RAD_ITS ---
INDICATION: TSA EXAMINATION/TECHNIQUE: X-RAY - LEFT XR Shoulder Min 2 Views 2 VIEWS COMPARISON: No relevant prior comparison study available FINDINGS: SOFT TISSUES: No soft tissue swelling or gas. No radiopaque foreign body. BONES/JOINTS: Status post reverse total shoulder arthroplasty. Components in expected positions. Expected soft tissue gas present. No acute fracture or subluxation.. Normal alignment. . No sclerotic or destructive changes observed. RAD/Shoulder min 2 Views IMPRESSION: Normal immediate postoperative appearance of the left total shoulder arthroplasty. Electronically Signed: Justin Aguilar MD at 10:50 EST ,
--- NOTE | 2023-05-08 12:13 | SUR.PHASEII ---
PATIENT IS VERY SLEEPY CURRENTLY AND HARDLY ABLE TO KEEP HIS EYES OPEN. HAS URINARY URGENCY BUT ONLY PUTTING OUT SMALL AMOUNTS. HE HAD ROBINUL IN PACU D/T BRADYCARDIA OF THE 30'S. APICAL PULSE 52.
[2023-05-08] MEDS: Cefazolin 1 GM/50 ML BAG IV (12:54)
== END 2023-05-08 15:15 | disposition home or self-care (01) ==
LOC: SDC 05:22 → AC 05:22
PROVIDERS: Anesthesiology; PCP Family Medicine; Referring Provider Specialist; Visit Provider Specialist
PROC: (CPT 23472; principal; 2023-05-08 07:00)
DX: M19.012 Primary osteoarthritis, left shoulder (principal); M75.100 Unspecified rotator cuff tear or rupture of unspecified shoulder, not specified as traumatic; E66.3 Overweight; H91.90 Unspecified hearing loss, unspecified ear; Z90.49 Acquired absence of other specified parts of digestive tract; Z86.718 Personal history of other venous thrombosis and embolism; Z68.26 Body mass index [BMI] 26.0-26.9, adult; R94.31 Abnormal electrocardiogram [ECG] [EKG]; R00.1 Bradycardia, unspecified
CPT/HCPCS: 23473; 01638; 64450; 36415; 73030; 80048; 82040; 82962; 83735; 85025; 87077; 87081; 88305; 88311; 93005; C1713; C1776; J7050; J7120; J2405; J3475

== ENCOUNTER → 2023-07-10 | Outpatient (CLI) | payer MEDICARE, OTHER, SELFPAY ==
--- NOTE | 2023-07-10 15:28 | VDLE_ITS ---
Reason For Study: LLE Swelling RIGHT LEFT CFV is compressible, spontaneous, phasic, GSV is normal. competent and demonstrates normal CFV is compressible, spontaneous, phasic, augmentation. competent, and demonstrates normal Procedure augmentation. This is a venous duplex using B-mode, color FV is compressible, spontaneous, phasic, flow and spectral Doppler. competent and demonstrates normal Exam performed in department. augmentation. The exam was diagnostic. Acute deep vein thrombosis is noted in the A preliminary report was called and/or faxed POP V. It is dilated and NONCOMPRESSIBLE. to Alison Mi / [email or web address] [email or web address] Acute deep vein thrombosis is noted in the office. Gastrocnemius V. It is dilated and NONCOMPRESSIBLE. T/P Trunk is compressible. PTV is compressible. LT PerV is compressible. VL/Venous Duplex US, Unilateral Interpretation Summary Acute deep venous thrombosis with visible thrombus left popliteal vein and terra rocnemius veins. Patent and compressible left great saphenous vein Normal flow patterns right common femoral vein Ordering Physician: Elijah Fuller Referring Physician: Abdullahi Shah Performed By: Richard Gurrola RVT
== END | disposition home or self-care (01) ==
PROVIDERS: PCP Family Medicine; Referring Provider Specialist; Visit Provider Specialist
DX: R22.42 Localized swelling, mass and lump, left lower limb (principal)
CPT/HCPCS: 93971

== ENCOUNTER → 2023-09-23 | Outpatient (CLI) | payer MEDICARE, OTHER, SELFPAY ==
--- NOTE | 2023-09-23 14:53 | VDLE_ITS ---
Reason For Study: DVT Lt leg RIGHT LEFT CFV is compressible, spontaneous, phasic, GSV is normal. competent and demonstrates normal CFV is compressible, spontaneous, phasic, augmentation. competent, and demonstrates normal Procedure augmentation. This is a venous duplex using B-mode, color FV is compressible, spontaneous, phasic, flow and spectral Doppler. competent and demonstrates normal Exam performed in department. augmentation. Compared to 07/10/2023. POP V is compressible, spontaneous, phasic, A preliminary report was called and/or faxed competent and demonstrates normal to Dr. Shah. augmentation. T/P Trunk is compressible. PTV is compressible. LT PerV is compressible. Gastroc V is noncompressible with no venous flow noted. VL/Venous Duplex US, Unilateral Interpretation Summary Deep venous thrombosis left gastrocnemius vein. Patent and compressible left great saphenous vein Normal flow patterns right common femoral vein Ordering Physician: Abdullahi Shah Referring Physician: Abdullahi Shah Performed By: Hedy Rizzo RVT
== END | disposition home or self-care (01) ==
LOC: CVS 14:51
PROVIDERS: PCP Family Medicine; Referring Provider Family Medicine; Visit Provider Family Medicine
DX: I82.462 Acute embolism and thrombosis of left calf muscular vein (principal); I82.432 Acute embolism and thrombosis of left popliteal vein
CPT/HCPCS: 93971

== ENCOUNTER → 2023-11-07 | Outpatient (CLI) | payer MEDICARE, OTHER, SELFPAY ==
--- NOTE | 2023-11-07 16:33 | CT_ITS ---
INDICATION: FU PULM NODULE EXAMINATION: CT CHEST WITHOUT CONTRAST - CT Chest W/O Contrast Injection TECHNIQUE: Helically acquired images were obtained of the chest. A radiation dose optimization technique was used for this scan. IV Contrast dosage and agent: None. COMPARISON: 05/08/2023 FINDINGS: LUNGS, PLEURA AND LARGE AIRWAYS: There is a decrease in the size of noncalcified nodule in the periphery of the left lower lobe of the lungs from 6 mm in diameter to 4 mm in diameter likely consistent with a shrinking scar. Follow-up CT is recommended in 6 months to document further stability or improvement. Linear opacity in the anterior left lower lobe consistent with discoid atelectasis. No new noncalcified nodule or mass. No pleural effusion or thickening. No pneumothorax. THYROID: No thyroid lesions. HEART AND PERICARDIUM: Heart size is normal. No pericardial effusion. CORONARY ARTERIES: Coronary artery calcification is seen. VESSELS: Thoracic aorta is not dilated. MEDIASTINUM AND BILL: No mediastinal or hilar adenopathy. Esophagus is unremarkable. No hiatal hernia. UPPER ABDOMEN: Bilateral renal cysts including a 6 cm exophytic cyst in the upper pole left kidney. BONES: Mild dextroscoliosis of thoracic spine. Status post left shoulder reverse arthroplasty. CT/Chest without Contrast IMPRESSION: Shrinking left lower lobe noncalcified nodule likely consistent with a scar. Follow-up CT is recommended in 6 months to document stability or improvement. Electronically Signed: Yovani Patrick MD at 9:11 EDT ,
== END | disposition home or self-care (01) ==
LOC: CT 16:31
PROVIDERS: PCP Family Medicine; Referring Provider Family Medicine; Visit Provider Family Medicine
DX: R91.1 Solitary pulmonary nodule (principal)
CPT/HCPCS: 71250

== ENCOUNTER → 2023-11-27 | Outpatient (CLI) | payer SELFPAY, MEDICARE, OTHER ==
--- NOTE | 2023-11-27 14:34 | CT_ITS ---
STUDY: CT CHEST WITHOUT CONTRAST REASON FOR EXAM: Male, 68 years old. CAD, assess severity, lung nodule -- *limited over read only* RADIATION DOSAGE (If Supplied By Facility): CTDIvol = ( 12.19 ) mGy, DLP = ( 219.42 ) mGycm TECHNIQUE: Transaxial imaging was performed without the administration of intravenous contrast material. Individualized dose optimization techniques were used for this CT. COMPARISON: Comparison is made with prior study dated November 07, 2023. FINDINGS: CHEST Stable 4 mm noncalcified nodule in the periphery of the left lower lobe. There is no demonstrated pleural abnormality. There are calcifications of the coronary arteries. Normal mediastinum. Normal hilar regions. Normal unenhanced pulmonary arteries. There is a mild degree of atherosclerotic calcification of the aortic arch. Normal osseous structures. There is no demonstrated abnormality of the visualized upper abdomen. CT/Limited Chest CT Cardiac Only IMPRESSION: Stable examination. Coronary artery calcification. Electronically Signed: Jonathon Escobar MD at 9:47 EDT ,
--- NOTE | 2023-11-27 16:36 | CA.SCORE ---
Calcium Scoring Date of Study:: 11/27/23 Indications Indications: CAD Coronary Calcium Scoring: High-resolution Computed Tomographic imaging of the chest was performed on [11/27/23 ], with particular attention paid to the coronary arteries. Images from the examination were analyzed for the presence and extent of coronary artery calcification , using coronary calcium quantification software. The patient tolerated the procedure well and there were no complications. The results of the coronary calcification analysis are provided below. Findings Coronary Artery Left Main (LM): 7 Left Anterior Descending (LAD): 137 Left Circumflex (LCX): 23 Right Coronary Artery (RCA): 0.79 Total Agatston Score: 167.79 Percentile Rankintht 50th% Calcium Scoring Interpretation: Different methods to categorize the overall amount of coronary plaque. Overall amount CAC SIS Visual of coronary plaque P1 Mild -100 <2 1-2 vessels with mild amount of plaque P2 Moderate 101-300 3-4 1-2 vessels with moderate amount, 3 vessels with mild amount of plaque P3 Severe 301-999 5-7 3 vessels with moderate amount, 1 vessel with severe amount of plaque P4 Extensive >1000 >8 2-3 vessels with severe amount of plaque Calcium Score: Moderate: 1-2 vessels w/moderate amt, 3 vessels w/mild amt of plaque Conclusion: Moderate 1-2 vessel disease.
== END | disposition home or self-care (01) ==
PROVIDERS: PCP Family Medicine; Referring Provider Family Medicine; Visit Provider Family Medicine
DX: I25.10 Atherosclerotic heart disease of native coronary artery without angina pectoris (principal)
CPT/HCPCS: 75571; 76380

== ENCOUNTER → 2023-12-04 | Outpatient (CLI) | payer MEDICARE, OTHER, SELFPAY ==
--- NOTE | 2023-12-04 13:39 | VDLE_ITS ---
Reason For Study: RECENT DVT RIGHT LEFT CFV is compressible, spontaneous, phasic, GSV is normal. competent and demonstrates normal CFV is compressible, spontaneous, phasic, augmentation. competent, and demonstrates normal Procedure augmentation. This is a venous duplex using B-mode, color FV is compressible, spontaneous, phasic, flow and spectral Doppler. competent and demonstrates normal Exam performed in department. augmentation. A preliminary report was called and/or faxed POP V is compressible, spontaneous, phasic, to @ [phone] @ 7400. competent and demonstrates normal augmentation. T/P Trunk is compressible. PTV is compressible. LT PerV is compressible. GASTROCNEMIUS VEIN is OCCLUDED & NONCOMPRESSIBLE. VL/Venous Duplex US, Unilateral Interpretation Summary Deep vein thrombosis noted in the left gastrocnemius vein, no significant chan e from prior study. Ordering Physician: Abdullahi Shah Referring Physician: Abdullahi Shah Performed By: Millie Velazquez RDCS, RVT
== END | disposition home or self-care (01) ==
LOC: CVS 13:38
PROVIDERS: PCP Family Medicine; Referring Provider Family Medicine; Visit Provider Family Medicine
DX: I82.432 Acute embolism and thrombosis of left popliteal vein (principal); I82.462 Acute embolism and thrombosis of left calf muscular vein
CPT/HCPCS: 93971

== ENCOUNTER → 2023-12-31 | Outpatient (CLI) | payer MEDICARE, OTHER, SELFPAY ==
[2023-12-31 17:31] LABS: Absolute Lymphocyte Count 1.53 X10^3/uL (0.83-4.51); Absolute Neutrophil Count 3.1 X10^3/uL (2.0-7.7); Basophil# 0.06 X10^3/uL; Basophil% 1.1 % (0-1); Eosinophil# 0.07 X10^3/uL; Eosinophils% 1.3 % (0-5); Hematocrit 44.5 % (40-54); Lymphocyte # 1.53 X10^3/ul (0.83-4.51); Lymphocyte % 28.9 % (19-41); Mean Corp Hgb Conc 31.5 g/dL (32-36); Mean Corpuscular Hgb 29.4 pg (27.0-32.0); Mean Corpuscular Volume 93.5 fL (80-94); Mean Platelet Vol. 10.1 fl (6.2-12.0); Monocyte# 0.48 X10^3/uL; Monocyte% 9.1 % (0-10); NRBC Flagged by Analyzer 0 % (0-5); Neutrophil # 3.14 X10^3/uL (2.7-7.7); Neutrophil % 59.4 % (47-70); Platelet Count 222 K/mm3 (150-450); RBC Distribution Width CV 13.4 % (11.6-14.6); RBC Distribution Width SD 45.9 fl (35.1-43.9); Red Blood Count 4.76 M/mm3 (4.6-6.2); White Blood Count 5.3 K/mm3 (4.4-11.0)
[2023-12-31 17:54] LABS: Cholesterol 183 mg/dL (200); High Density Lipoprotein 49 mg/dL; PSA,Total - Annual Screen 2.28 ng/mL (0.00-4.00); Triglycerides 176 mg/dL; Very Low Density Lipoprotein 35 mg/dL (5-40)
== END | disposition home or self-care (01) ==
LOC: BFHLAB 16:16
PROVIDERS: PCP Family Medicine; Referring Provider Family Medicine; Visit Provider Family Medicine
DX: I25.10 Atherosclerotic heart disease of native coronary artery without angina pectoris (principal); Z12.5 Encounter for screening for malignant neoplasm of prostate; Z51.81 Encounter for therapeutic drug level monitoring
CPT/HCPCS: 36415; 80061; 84153; 85025; G0103

== ENCOUNTER → 2024-02-13 | Outpatient (CLI) | payer MEDICARE, OTHER, SELFPAY ==
--- NOTE | 2024-02-13 12:43 | VDLE_ITS ---
Reason For Study: Assess Gastroc DVT RIGHT LEFT CFV is compressible, spontaneous, phasic, GSV is normal. competent and demonstrates normal CFV is compressible, spontaneous, phasic, augmentation. competent, and demonstrates normal Procedure augmentation. This is a venous duplex using B-mode, color FV is compressible, spontaneous, phasic, flow and spectral Doppler. competent and demonstrates normal Exam performed in department. augmentation. Compared to 12/04/2023. POP V is compressible, spontaneous, phasic, A preliminary report was called and/or faxed competent and demonstrates normal to Dr. Shah. augmentation. T/P Trunk is compressible. PTV is compressible. LT PerV is compressible. GastrocV is partially compressible with bright intraluminal echoes consistent with Chronic DVT. VL/Venous Duplex US, Unilateral Interpretation Summary Chronic deep vein thrombosis is noted in the left gastrocnemius vein, partial i nterval resolution. Ordering Physician: Abdullahi Shah Referring Physician: Abdullahi Shah Performed By: Hedy Rizzo RVT
--- OUTSIDE RECORDS SUMMARY | 2024-02-13 14:26 | XMS RPT_ITS | CCD ---
Author Organization [facility] [employer] [facility] Care Team Providers Care Physiotherapy Practice Manager Name Role Phone LORI CACERES Attending Unavail able PROVIDER, UNKNOWN Referring Unavailable PabloAbdullahi Primary Care Unavailable Encounters Encounter Date Encounter Type Care Provider Facility Start: 07-17-2018 Patient encounter procedure LORI CACERES [facility] Payers Date Payer Category Payer Unknown [id number] Unknown Summary Purpose Family History No Family History Records Found Advance Directives No Advanced Directives Records Found Additional Source Comments (unrecognized sect ion and content) No Status Records Found INFORMATION SOURCE (unrecogn ized section and content) DATE CREATED AUTHOR 07/20/2018 [facility] FOR RECORDS PERTAINING TO PATIENTS WHO ARE [...] BE BASED ON THE PRIMARY CLINICAL RECORDS. [employer] [facility]. provides no warranty or guarantee of the accuracy or completeness of information in this document.
== END | disposition home or self-care (01) ==
LOC: CVS 12:41
PROVIDERS: PCP Family Medicine; Referring Provider Family Medicine; Visit Provider Family Medicine
DX: I82.462 Acute embolism and thrombosis of left calf muscular vein (principal)
CPT/HCPCS: 93971

== ENCOUNTER 2024-02-24 06:51 | Day surgery (SDC) | payer MEDICARE, OTHER, SELFPAY ==
[2024-02-24] VITALS (7 sets, daily range): BP systolic 100–124; BP diastolic 67–73; PULSE 45–82; RESP 16–18; TEMP 36.1–36.4; O2SAT 96–100; BMI 23.6
--- OUTSIDE RECORDS SUMMARY | 2024-02-24 06:55 | XMS RPT_ITS | CCD ---
Author Organization [facility] [employer] [facility] Care Team Providers Care Financial Examiner Name Role Phone LORI CACERES Attending Unavail able PROVIDER, UNKNOWN Referring Unavailable PabloAbdullahi Primary Care Unavailable Encounters Encounter Date Encounter Type Care Provider Facility Start: 07-17-2018 Patient encounter procedure LORI CACERES [facility] Payers Date Payer Category Payer Unknown [id number] Unknown Summary Purpose Family History No Family History Records Found Advance Directives No Advanced Directives Records Found Additional Source Comments (unrecognized sect ion and content) No Status Records Found INFORMATION SOURCE (unrecogn ized section and content) DATE CREATED AUTHOR 07/20/2018 [facility] FOR RECORDS PERTAINING TO PATIENTS [...] BE BASED ON THE PRIMARY CLINICAL RECORDS. [employer] [facility]. provides no warranty or guarantee of the accuracy or completeness of information in this document.
--- NOTE | 2024-02-24 07:23 | HP.PCM_ITS ---
History and Physical Date of Admission: 02/24/24 Date of Service: 01/27/24 MR#: [id number] Acct: [id number] Name: JAY DA SILVA I Rep #: [id number] : 1955 Provider: Dr. Kalee Narvaez MD Age/Sex: 68/M Location: [facility] Status: Signed Intake Vital Signs 05/08/2405:26 01/26/2414:49 Height 6 ft 6 ft Weight: 183 lb BMI 24.8 BP 129/71 H Blood Pressure Location Rt brachial Position Sitting Respiration 17 Pulse 53 L Pulse Source Monitor Pulse Oximetry (%) 96 Oxygen Delivery Method room air Intake Visit Reasons: COLONOSCOPY Chief Complaint: colonoscopy Is patient in pain?: No Allergies No Known Allergies Allergy (Verified 01/27/24 14:50) Medications ?Medication ?Instructions ?Recorded ?Confirmed ?Type calcium 600 mg (as 2 tab PO DAILY 04/09/23 01/27/24 History carbonate)-vitamin D3 5 mcg (200 unit) tablet cholecalciferol (vitamin D3) 50 50 mcg PO DAILY 04/09/23 01/27/24 History mcg (2,000 unit) capsule (Vitamin D3) naproxen sodium 220 mg tablet 440 mg PO BID 04/09/23 01/27/24 History (Aleve) triamcinolone acetonide 55 mcg 1 spray intranasal DAILY 04/09/23 01/27/24 History nasal spray aerosol (Nasacort) Have you fallen in the past year?: No PFSH Medical History (Updated 01/29/24 @ 11:[address] Kalee Narvaez MD) Tinnitus Loss of hearing Wears glasses Wears contact lenses Arthritis DVT (deep venous thrombosis) Back pain Non-smoker History of pain when walking History of edema Bradycardia Surgical History History of toe surgery Hx of appendectomy Family History (Updated 01/27/24 @ 14:49 by Deja Mcelroy) Brother Heart disease HypertensionFather Heart disease Social History Smoking Status: Never smoker HPI HPI HPI: 68-year-old male presents for colonoscopy. Patient has never had previous colonoscopy. Patient denies any family history of colon cancer. Patient has bowel movements daily denies any blood. Patient denies any chronic abdominal pain/nausea/vomiting/reflux. Patient did have shoulder surgery and found to have popliteal as well as gastrocnemius DVT patient was on Eliquis came off on January 01 after 6 months. Patient's repeat ultrasound only shows the gastrocnemius clot popliteal is compressible?patient has upcoming appointment with vascular surgery. ROS General General: No weight change, appetite, fatigue, colon cancer or breast cancer HEENT HEENT: No difficulty swallowing, eye injury, eye surgery, swollen glands or hoar seness Endo Endocrine: No thyroid disease, diabetes mellitus, thyroid cancer, Hair loss, heat intolerance or cold intolerance Skin Skin: No rash or changing moles Musc Musculoskeletal: No back problems, arthritis, rheumatoid arthritis, gout or joint pain Cardio Cardiovascular: No murmur, pacemaker, heart disease, atrial fibrillation, high blood pressure, heart attack, heart stent, palpitations, shortness of breat with exertion or chest pain Psych Psychiatric: No depression, anxiety or hearing voices Resp Respiratory: No shortness of breath, No sleep apnea, No cough, No COPD, No asthma, No emphysema and No wheezing Gastro Gastrointestinal: No abdominal pain, No nausea or vomiting, No diarrhea, No constipation, No blood in stool, No acid reflux, No hemorrhoids, No ulcers, No gallbladder problem and No black,tarry stools Joselo Hematologic: No blood thinners, No blood disorders, No bleeding, No anemia and Yes blood clots Neuro Neurologic: No numbness and No tingling Exam Const General: cooperative, healthy appearing, comfortable and no acute distress HENMT Head: normocephalic and atraumatic Neck Neck: supple Resp Effort & Inspection: normal respiratory effort Cardio Rate: regular rate GI Inspection: non-distended Palpation: soft, no hernias and nontender Skin General: no rashes or lesions noted Neuro General: CN's II-XI intact bilaterally Extrem General: normal to inspection Psych Mental Status: mental status grossly normal Attitude: cooperative Assessment and Plan Assessment and Plan (1) Encounter for screening for malignant neoplasm of colon: Status: Acute (2) DVT (deep venous thrombosis): Status: Acute Comment: SUPERFICIAL 2022 Plan I have discussed the above with the patient. I have offered the patient colonoscopy for evaluation. I have explained the risks/benefits of the procedure and described the procedure. I have discussed the risks with the patient, including but not limited to: infection, bleeding, perforation of the GI tract requiring emergency surgery, inability to complete the procedure, injury to any internal organs, complications of anesthesia, etc. - the patient understands and agrees to proceed. I have answered all the patient's questions to the patient's satisfaction and the patient has no further questions. The patient has been given instructions for the colon cleansing preparation. 1 day of clears MiraLAX Dulcolax prep. Kalee Narvaez M.D. Pager: [phone] [facility] [address] [place] [address], [address] [place] [address] Office: [phone] Coding Level of Care Code Off vis,new,level 3 Diagnoses Encounter for screening for malignant neoplasm of colon Z12.11 DVT (deep venous thrombosis) I82.409 Clinical Quality Measures Falls Risk Screening/Assistive Devices Have you fallen in the past year?: No 01/29/24 1129 <Electronically signed by Kalee Narvaez MD> Date Kalee Narvaez MD
--- NOTE | 2024-02-24 07:23 | PCM.PRE.AN2 ---
ASA Classification* ASA Classification ASA Classification: 2 Assessment & Plan Anesthesia* Anesthesia Assessment Anesthesia Assessment: Discussed sedation and/or anesthesia options, risks, benefits, and alternatives with patient/parents/legal guardian/POA. Questions invited. The patient/parents/legal guardian/POA seems to understand and agrees to proceed with anesthesia plan. Reviewed the physical assessment, medical history, allergy history and patient home medications list prior to surgery/procedure/anesthetic and documented any changes. Performed airway and anesthesia risk assessments. Anesthesia Type Anesthesia Type: MAC Anesthesia Focused Assessment* Airway Assessment Mouth opens: >3 cm Mallampati Score: II Focused Labs Anesthesia Preop lab: CBC WBC 5.3 K/mm3 (4.4-11.0) 12/31/23 16:17 RBC 4.76 M/mm3 (4.6-6.2) 12/31/23 16:17 Hgb 14.0 g/dL (13.0-16.5) 12/31/23 16:17 Hct 44.5 % (40-54) 12/31/23 16:17 Plt Count 222 K/mm3 (150-450) 12/31/23 16:17 CHEMISTRY Potassium 4.4 mmol/L (3.5-5.1) 04/23/23 14:46 Sodium 139 mmol/L (136-145) 04/23/23 14:46 Magnesium 2.3 mg/dL (1.6-2.6) 04/23/23 14:46 BUN 22 mg/dL (7-18) H 04/23/23 14:46 Creatinine 1.04 mg/dL (0.70-1.30) 04/23/23 14:46 Glucose 102 mg/dL (74-106) 04/23/23 14:46 POC Glucose 87 mg/dL (74-106) 05/08/23 06:05 TSH 1.67 uIU/mL (0.358-3.74) 01/05/17 09:39 COAG Pre-Assessment Diagnosis/Proposed Procedure Planned Operative Procedure(s): CSCOPE Anesthesia History 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 When Was Last Pacemaker Check QUESTION #4 FULL TEXT: You/Your Family Experience fever (hyperthermia) with Anesthesia Last Oral Intake Last Oral intake: Last Oral Intake NPO since Meds taken in AM with sips of water? 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 Female No 02/19/24 09:55 HX of Motion Sickness No 02/19/24 09:55 HX of N/V After Surgery No 02/19/24 09:55 Non-Smoker Yes 02/19/24 09:55 Duration of Surgery greater No 02/19/24 09:55 than 60 minutes Number of Risk Factors 1 02/19/24 09:55 PONV Score Low Risk 02/19/24 09:55 Height & Weight Height & Weight: Anesthesia: Height & Weight Height 6 ft 01/27/24 14:49 Respiratory Assessment Respiratory Assessment - factory laborer: Respiratory Tract Infection Hx - factory laborer Hx Respiratory Tract Infection No 02/19/24 09:55 STOP Sleep Apnea STOP Sleep Apnea - factory laborer: STOP Sleep Apnea - factory laborer Hx Hypertension No 02/19/24 09:55 Hx Sleep Apnea No 02/19/24 09:55 CPAP BIPAP Do you snore loudly (louder No 02/19/24 09:55 than talking or can be heard Do you often feel tired/ Yes 02/19/24 09:55 fatigued/ sleepy during daytime? Has anyone observed you stop No 02/19/24 09:55 breathing during sleep? STOP Results Negative 02/19/24 09:55 QUESTION #5 FULL TEXT : Do you snore loudly (louder than talking or can be heard through closed doors)? 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 Specify any problems Hx of Preganancy in last 3 N/A 02/19/24 09:55 Months Nurse Filling Out Transfusion DSCHRIBER 02/19/24 09:55 & Questions: Date: 02/19/24 02/19/24 09:55 Time: 09:56 02/19/24 09:55 Patient unable to answer at this time (ie. confused, unrespo /Reproduction History /Reproductive History - factory laborer: /Reproductive Hx- factory laborer Hx Now No 02/19/24 09:55 Gestational Age (in weeks): EDC: Hx Hx Para Hx Section SAB No 02/19/24 09:55 PFSH Medical History DVT (deep venous thrombosis) History of pain when walking Loss of hearing Wears glasses Wears contact lenses Arthritis DVT (deep venous thrombosis) Back pain Non-smoker History of edema Bradycardia Home Medications ?Medication ?Instructions ?Recorded ?Last Taken ?Type cholecalciferol (vitamin D3) 50 50 mcg PO DAILY 04/09/23 Unknown History mcg (2,000 unit) capsule (Vitamin D3) naproxen sodium 220 mg tablet 440 mg PO BID PRN pain 04/09/23 Unknown History (Aleve) amoxicillin 500 mg capsule 2,000 mg PO PRN PREOP 02/19/24 02/24/24 History Allergy/AdvReac Type Severity Reaction Status Date / Time No Known Allergies Allergy Verified 02/24/24 07:22 Family History Brother Heart disease Hypertension Father Heart disease Surgical History Hx of total shoulder replacement History of toe surgery Hx of appendectomy Social History Smoking Status: Never smoker Review of Systems (Anesthesia) ROS Narrative System reviewed and no additional complaints, except as documented.
--- NOTE | 2024-02-24 08:36 | OP.COLON_ITS ---
Patient Name: Kit Joyce Procedure Date: 02/24/2024 7:34 AM Date of : 1955 Age: 68 Procedure: Colonoscopy Indications: Screening for colorectal malignant neoplasm Providers: Kalee Narvaez MD Referring MD: Abdullahi Shah Medicines: Monitored Anesthesia Care Patient Profile: This is a 68 year old male. Last Colonoscopy: none. The patient's first colonoscopy is today. Complications: No immediate complications. Procedure: Pre-Anesthesia Assessment: - Prior to the procedure, a History and Physical was performed, and patient medications and allergies were reviewed. The patient's tolerance of previous anesthesia was also reviewed. The risks and benefits of the procedure and the sedation options and risks were discussed with the patient. All questions were answered, and informed consent was obtained. Prior Anticoagulants: The patient has taken no anticoagulant or antiplatelet agents. ASA Grade Assessment: Per anesthesia. After reviewing the risks and benefits, the patient was deemed in satisfactory condition to undergo the procedure. After I obtained informed consent, the scope was passed under direct vision. Throughout the procedure, the patient's blood pressure, pulse, and oxygen saturations were monitored continuously. The Colonoscope was introduced through the anus and advanced to the cecum, identified by the appendiceal orifice, ileocecal valve and palpation. The colonoscopy was performed without difficulty. The patient tolerated the procedure well. The quality of the bowel preparation was good. Scope In: 8:18:54 AM Scope Withdrawal Time 0 hours 9 minutes 8 seconds Scope Out: 8:32:37 AM Total Procedure Duration Time 0 hours 13 minutes 43 seconds Findings: The perianal and digital rectal examinations were normal. The entire examined colon appeared normal on direct and retroflexion views. Impression: - The entire examined colon is normal on direct and retroflexion views. - No specimens collected. Recommendation: - Discharge patient to home. - Resume previous diet. - Continue present medications. - Repeat colonoscopy in 10 years for screening purposes. Procedure Code(s): --- Professional --- G0121, PT, Colorectal cancer screening; colonoscopy on individual not meeting criteria for high risk Diagnosis Code(s): --- Professional --- Z12.11, Encounter for screening for malignant neoplasm of colon CPT copyright 2021 [employer]. All rights reserved. The codes documented in this report are preliminary and upon medical billing coder review may be revised to meet current compliance requirements. MD Kalee Estrella MD 02/24/2024 8:36:05 AM This report has been signed electronically. Number of Addenda: 0 Note Initiated On: 02/24/2024 7:34 AM
--- NOTE | 2024-02-24 08:37 | OP.CCLET_ITS ---
02/24/2024 Abdullahi Shah [address] [place] [address] Re : Colonoscopy procedure for Kit Joyce Dear Dr. Shah This procedure was performed on Saturday, February 24, 2024. My impressions and recommendations are as follows: Impressions : - The entire examined colon is normal on direct and retroflexion views. - No specimens collected. Recommendations : - Discharge patient to home. - Resume previous diet. - Continue present medications. - Repeat colonoscopy in 10 years for screening purposes. My findings are described in the full procedure note, which is enclosed. If I can be of further assistance, please feel free to contact me at Doctor phone number(s): , Work: . Sincerely, MD Kalee Estrella MD 02/24/2024 8:36:05 AM This report has been signed electronically.
--- NOTE | 2024-02-24 08:41 | PCM.POST.ANE ---
Anesthesia: Postop Eval I Current Vital Signs Temperature: 97.5 F Pulse Rate: 79 Blood Pressure: 101/69 Respiratory Rate: 16 Pulse Ox: 97 Oxygen Delivery Method: Room Air Assessment Airway patent: Yes Spontaneous unlabored respirations: Yes Mental status: Asleep nausea: No Vomiting: No Anesthesia Complication: No Fluid Hydration Crystalloid volume administer (ml): 50 Total IV fluid infused: 50 Progress Note Anesthesia document: Postop Eval 1 completed: Yes
--- NOTE | 2024-02-24 08:54 | PCM.POSTANE2 ---
Anesthesia Postop Eval I Sum Postop Eval Completion status Anesthesia document: Postop Eval 1 completed: Yes Anesthesia Postop Eval I Summary Anesthesia Postop Eval I Summary: Anesthesia Postop Eval I: Assessment Summary Airway patent Yes 02/24/24 08:42 [email or web address] Spontaneous unlabored Yes 02/24/24 08:42 [email or web address] respirations Mental status Asleep 02/24/24 08:42 [email or web address] nausea No 02/24/24 08:42 [email or web address] Vomiting No 02/24/24 08:42 [email or web address] Anesthesia Postop Eval I: Fluid Summary Crystalloid volume administer 50 02/24/24 08:42 [email or web address] (ml) Colloids volume administered ( ml) Blood Product volume administered (ml) Total IV fluid infused 50 02/24/24 08:42 [email or web address] Anesthesia Postop Eval I: Summary Notes Anesthesia Complication No 02/24/24 08:42 [email or web address] Anesthesia Complication Comment: Post-operative progress note Anesthesia: Postop Eval II Evaluation Mental status: Awake Pain Level: 0 nausea: No Vomiting: No Complications Anesthesia Complication: No
== END 2024-02-24 09:22 | disposition home or self-care (01) ==
LOC: EN 06:53 → AC 06:54
PROVIDERS: PCP Family Medicine; Referring Provider Family Medicine; Visit Provider Surgery
PROC: 0DJD8ZZ Inspection of Lower Intestinal Tract, Via Natural or Artificial Opening Endoscopic (ICD-10-PCS; CPT 45378; principal; 2024-02-24 08:10)
DX: Z12.11 Encounter for screening for malignant neoplasm of colon (principal); I82.439 Acute embolism and thrombosis of unspecified popliteal vein; I82.469 Acute embolism and thrombosis of unspecified calf muscular vein
CPT/HCPCS: G0121; A4216; J2405

== ENCOUNTER → 2024-08-25 | Outpatient (CLI) | payer MEDICARE, OTHER, SELFPAY ==
--- NOTE | 2024-08-25 12:31 | VDLE_ITS ---
Reason For Study Reason For Study: RE-EVAL DVT RIGHT LEFT CFV is compressible, spontaneous, phasic, competent GSV is normal. and demonstrates normal augmentation. CFV is compressible, spontaneous, phasic, competent, Procedure and demonstrates normal augmentation. This is a venous duplex using B-mode, color flow and FV is compressible, spontaneous, phasic, competent spectral Doppler. and demonstrates normal augmentation. Exam performed in department. POP V is compressible, spontaneous, phasic, competent A preliminary report was called and/or faxed to and demonstrates normal augmentation. @ 13:15 @ [phone]. T/P Trunk is compressible. PTV is compressible. LT PerV is compressible. LT GASTROCNEMIUS VEIN is partially compressible with bright intraluminal echoes consistent with Chronic DVT. VL/Venous Duplex US, Unilateral Interpretation Summary Chronic deep vein thrombosis is noted in the left gastrocnemius vein. Similar a ppearance to most recent study. Ordering Physician: Abdullahi Shah Referring Physician: Abdullahi Shah Performed By: Millie Velazquez, NORMA, RVT
== END | disposition home or self-care (01) ==
LOC: CVS 12:29
PROVIDERS: PCP Family Medicine; Referring Provider Family Medicine; Visit Provider Family Medicine
DX: I82.532 Chronic embolism and thrombosis of left popliteal vein (principal)
CPT/HCPCS: 93971

== ENCOUNTER → 2025-01-19 | Outpatient (CLI) | payer MEDICARE, OTHER, SELFPAY ==
[2025-01-19 09:50] LABS: Hematocrit 43.2 % (40-54); Hemoglobin 14.5 g/dL (13.0-16.5); Mean Corp Hgb Conc 33.6 g/dL (32-36); Mean Corpuscular Volume 89.8 fL (80-94); Mean Platelet Vol. 9.3 fl (6.2-12.0); Platelet Count 193 K/mm3 (150-450); RBC Distribution Width CV 13.2 % (11.6-14.6); RBC Distribution Width SD 43.6 fl (35.1-43.9); Red Blood Count 4.81 M/mm3 (4.6-6.2); White Blood Count 5.6 K/mm3 (4.4-11.0)
[2025-01-19 10:08] LABS: Cholesterol 184 mg/dL (<=200); Low Density Lipoprotein Calc. 109 mg/dL; PSA,Total - Annual Screen 3.06 ng/mL (0.02-4.00); Triglycerides 107 mg/dL; Very Low Density Lipoprotein 21 mg/dL (5-40); cholesterol:hdl ratio screen 3.41
[2025-01-19 10:10] LABS: AST(SGOT) 14 U/L (<=37); Alanine Aminotransfer ALT/SGPT 14 U/L (<=46); Albumin, Serum 3.9 g/dL (3.4-4.8); Alkaline Phosphatase 103 U/L (40-129); Anion Gap 9 (5-15); BUN 13 mg/dL (4-19); BUN/Creat Ratio 15.1 RATIO (10-20); Calcium,Total 9.0 mg/dL (7.6-11.0); Carbon Dioxide 27.3 mmol/L (21.0-32.0); Chloride 104 mmol/L (98-108); Globulin 2.5 g/dL (2.2-4.2); Glucose 86 mg/dL (70-99); Potassium 3.8 mmol/L (3.3-5.1)
--- NOTE | 2025-01-19 14:37 | MRI_ITS ---
PROCEDURE: SPINE LUMBAR (ROUTINE) 01/19/2025 REASON FOR EXAM: SPINAL STENOSIS Pain extending down the legs. TECHNIQUE: Procedure Code: MRISPL Modality: MR Procedure: SPINE LUMBAR (ROUTINE) COMPARISON: None. FINDINGS: T11-L1: Vertebral bodies: Negative. Disk Space: Negative. Negative for Modic changes. Facet Joints: Negative for bilateral facet joint hypertrophy. Neural foramina: Negative for neural foraminal narrowing Spinal Canal: Negative for central spinal narrowing. L1-2: Vertebral bodies: Negative. Disk Space: Disc desiccation. Mild loss of disc height. Negative for Modic changes. Facet Joints: Negative for bilateral facet joint hypertrophy. Neural foramina: Negative for neural foraminal narrowing Spinal Canal: Negative for subarticular zone narrowing. Negative for central spinal narrowing. L2-3: Vertebral bodies: Negative. Disk Space: Disc desiccation. Mild loss of disc height. Mild diffuse disc bulge. Negative for Modic changes. Facet Joints: Mild bilateral facet joint hypertrophy. Neural foramina: Mild bilateral neural foraminal narrowing. Neural foraminal narrowing Spinal Canal: Slight bilateral subarticular zone narrowing. Slight central spinal narrowing. L3-4: Vertebral bodies: Negative. Disk Space: Disc desiccation. Moderate loss of disc height. Negative for Modic changes. Facet Joints: Moderate bilateral facet joint hypertrophy. Neural foramina: Moderate bilateral neural foraminal narrowing Spinal Canal: Mild right subarticular zone narrowing. Slight right central spinal narrowing. L4-5: Vertebral bodies: Negative. Disk Space: Disc desiccation moderate loss of disc height. Negative for Modic changes. Facet Joints: Moderate bilateral bilateral facet joint hypertrophy. Neural foramina: [id number] bilateral neural foraminal narrowing Spinal Canal: Negative for subarticular zone narrowing. Negative for central spinal narrowing. L5-S1: Vertebral bodies: Negative. Disk Space: Negative. Negative for Modic changes. Facet Joints: Mild bilateral facet joint hypertrophy. Neural foramina: Negative for neural foraminal narrowing Spinal Canal: Negative for subarticular zone narrowing. Negative for central spinal narrowing. Vertebrae: Normal bone marrow signal. Conus Medullaris: Spinal cord is normal and ends at L1-L2. Imaged kidneys aorta otherwise negative. The remainder of the exam negative. MRI/Spine Lumbar (Routine) IMPRESSION: Multilevel multifactorial degenerative changes lumbar spine. Most prominent L3-L4 as above. Reading Location: [place] [address]
[2025-01-21 16:34] LABS: Immature Granulocytes Count 0.010 X10^3/uL (0.0-0.0); NRBC Flagged by Analyzer 0 % (0-5)
== END | disposition home or self-care (01) ==
LOC: MRI 14:10
PROVIDERS: PCP Family Medicine; Referring Provider Family Medicine; Visit Provider Family Medicine
DX: M48.061 Spinal stenosis, lumbar region without neurogenic claudication (principal); I25.10 Atherosclerotic heart disease of native coronary artery without angina pectoris; R00.1 Bradycardia, unspecified; Z12.5 Encounter for screening for malignant neoplasm of prostate
CPT/HCPCS: 36415; 72148; 80053; 80061; 84153; 84443; 85025; 85027; G0103